=== PATIENT | male | born 1950 | race Caucasian/White ===

== ENCOUNTER → 2016-06-26 | Outpatient (CLI) | payer OTHER ==
[~2016-06-26] VITALS: Ht 167.6 cm; Wt 81.6 kg
[~2016-06-26] MED LIST: AMLODIPINE BESYL5 MG PO; BENZONATATE100 MG PO; INCRUSE ELLI62.5 MCG IH; LO-DOSE ASPIRIN81 M2 PO; METOPROLOL TAR100 MG PO; PROAIR HFA8.5 GM IH; SYMBICORT60 INHALAT IH
[2016-06-26 15:25] LABS: INTER. NORMALIZED RATIO 1.1; PROTHROMBIN TIME 11.5 (9.2-11.2); PTT 30.8 (25-32)
[2016-06-26 15:43] LABS: HEMATOCRIT 42.7 % (38.0-50.0); MCH 34.1 PG (29.0-34.0); MEAN PLAT.VOLUME 9.9 uM^3 (9.0-12.4); PLATELET COUNT 167 K/uL (156-360); RBC DIS.WIDTH-CV 12.6 % (11.8-14.6); RBC DIS.WIDTH-SD 42.3 % (39-53); RED BLOOD COUNT 4.64 M/uL (4.00-5.50); WHITE BLOOD COUNT 8.1 K/uL (4.1-10.2)
== END | disposition home or self-care (01) ==
LOC: AMB 14:17
PROVIDERS: Internal Medicine Pulmonary Disease
DX: R91.1 Solitary pulmonary nodule (principal); R59.0 Localized enlarged lymph nodes; J44.9 Chronic obstructive pulmonary disease, unspecified; G47.33 Obstructive sleep apnea (adult) (pediatric); F17.200 Nicotine dependence, unspecified, uncomplicated
CPT/HCPCS: 85027; 85610; 85730; 88173; 88305; J0461; J2175; J2250; J3010

== ENCOUNTER 2016-07-10 05:31 | Day surgery (SDC) | payer OTHER ==
[~2016-07-10] VITALS: Ht 167.6 cm; Wt 126.0 kg
[~2016-07-10 05:31] MED LIST changes: +PREDNISONE20 MG PO; +ZITHROMAX250 MG PO
[2016-07-10] MEDS ORDERED: CENTRUM SILVER1 EAC5 PO (05:56)
[2016-07-10 06:11] VITALS: BP 128/76
[2016-07-10 07:12] LABS: INTER. NORMALIZED RATIO 1.1; PROTHROMBIN TIME 11.4 (9.2-11.2)
[2016-07-10 07:38] LABS: CHLORIDE 98 mEq/L (99-109); POTASSIUM 4.1 mEq/L (3.7-5.4); SODIUM 134 mEq/L (136-147)
[2016-07-10 07:41] LABS: GLUCOSE 82 mg/dL (70-99)
[2016-07-10 07:42] LABS: ANION GAP 10 MEQ/L (2-14)
[2016-07-10 07:43] LABS: TOTAL BILIRUBIN 0.6 mg/dL (0.0-1.0)
[2016-07-10 07:44] LABS: ALKALINE PHOSPHATASE 40 IU/L (3-129)
[2016-07-10 07:45] LABS: GFR ESTIMATE (CALCULATED) > 59 mL/min/
[2016-07-10 07:46] LABS: UREA NITROGEN (BUN) 17 mg/dL (9-23)
[2016-07-10] MEDS ORDERED: NORCO 5/3251 TABLET PO (09:22)
[2016-07-10] MEDS ORDERED: COLACE100 MG PO (09:22)
[2016-07-10 09:45] VITALS: BP 122/71
[2016-07-10 10:21] VITALS: BP 128/71
== END 2016-07-10 10:35 | disposition home or self-care (01) ==
LOC: SDC 05:31
PROVIDERS: Thoracic Surgery (Cardiothoracic Vascular Surgery)
PROC: 0WJC4ZZ Inspection of Mediastinum, Percutaneous Endoscopic Approach (ICD-10-PCS; principal; 2016-07-10)
DX: C77.1 Secondary and unspecified malignant neoplasm of intrathoracic lymph nodes (principal); R91.1 Solitary pulmonary nodule; I10 Essential (primary) hypertension; I69.398 Other sequelae of cerebral infarction; R05 Cough
CPT/HCPCS: 80053; 85610; 86850; 86900; 86901; 88305; 88341 TC; 88342 TC; 93005; J0131; J0690; J1100; J2250; J2405; J3010; J7050

== ENCOUNTER 2016-08-29 14:16 | Observation (INO) | payer OTHER ==
[~2016-08-29] VITALS: Ht 165.1 cm; Wt 77.4 kg
[~2016-08-29 14:16] MED LIST changes: +CENTRUM SILVER1 EAC5 PO; +COLACE100 MG PO; +COMPAZINE10 MG PO; +NORCO 5/3251 TABLET PO; +SEN-O-TAB8.6 MG PO; +XANAX0.25 MG PO
[2016-08-29] MEDS ORDERED: PHENERGAN-CODE120 ML PO (14:43)
[2016-08-29] MEDS ORDERED: OXAYDO5 MG PO (14:44)
[2016-08-29] MEDS ORDERED: INDOCIN50 MG PO (15:14)
[2016-08-29] MEDS ORDERED: DUONEB 2.5-0.5 M3 ML AEROSOL (15:14)
[2016-08-29 15:51] LABS: IMMATURE GRANULOCYTE (%) 0.3 % (0.0-0.7); INSTRUMENT ABS NEUTROPHIL CT 1.6 K/uL; LYMPHOCYTE COUNT 1.2 K/uL (1.0-2.8); MCH 32.8 PG (29.0-34.0); MCHC 33.6 G/DL (30.0-36.0); MCV 97.6 FL (86-99); MEAN PLAT.VOLUME 9.2 uM^3 (9.0-12.4); MONOCYTE (%) 8.3 % (3-12); MONOCYTE COUNT 0.3 K/uL (0-0.8); NEUTROPHIL (%) 52.2 % (45-76); NEUTROPHIL COUNT 1.6 K/uL (1.8-6.4); RBC DIS.WIDTH-SD 53.6 % (39-53); RED BLOOD COUNT 2.87 M/uL (4.00-5.50)
[2016-08-29 15:57] LABS: PLATELET COUNT 100 K/uL (156-360); WHITE BLOOD COUNT 3.1 K/uL (4.1-10.2)
[2016-08-29 16:00] LABS: CHLORIDE 102 mEq/L (99-109); INTER. NORMALIZED RATIO 1.1; POTASSIUM 4.7 mEq/L (3.7-5.4); PTT 26.6 (25-32); SODIUM 136 mEq/L (136-147)
[2016-08-29 16:03] LABS: GLUCOSE 105 mg/dL (70-99)
[2016-08-29 16:04] LABS: ANION GAP 9 MEQ/L (2-14)
[2016-08-29 16:05] LABS: TOTAL BILIRUBIN 0.5 mg/dL (0.0-1.0)
[2016-08-29 16:06] LABS: ALKALINE PHOSPHATASE 72 IU/L (3-129); GFR ESTIMATE (CALCULATED) > 59 mL/min/
[2016-08-29 16:08] LABS: UREA NITROGEN (BUN) 8 mg/dL (9-23)
[2016-08-29 17:17] LABS: TROP-I INTERPRETATION NEGATIVE; TROPONIN-I < 0.01 ng/mL (0.0-0.30)
[2016-08-29 17:21] VITALS: BP 123/73
[2016-08-29 20:00] VITALS: BP 135/65
[2016-08-30] VITALS: BP 117/56; BP 119/70; BP 120/57; BP 133/77
[2016-08-30 01:16] LABS: TROP-I INTERPRETATION NEGATIVE; TROPONIN-I < 0.01 ng/mL (0.0-0.30)
[2016-08-30 04:00] VITALS: BP 132/60
[2016-08-30 07:39] LABS: HEMATOCRIT 26.6 % (38.0-50.0); MCH 32.2 PG (29.0-34.0); MCHC 33.1 G/DL (30.0-36.0); MCV 97.4 FL (86-99); MEAN PLAT.VOLUME 9.7 uM^3 (9.0-12.4); PLATELET COUNT 80 K/uL (156-360); RBC DIS.WIDTH-CV 14.9 % (11.8-14.6); RED BLOOD COUNT 2.73 M/uL (4.00-5.50); WHITE BLOOD COUNT 2.7 K/uL (4.1-10.2)
[2016-08-30 07:57] LABS: ANION GAP 7 MEQ/L (2-14); CHLORIDE 101 MEQ/L (99-109); GFR ESTIMATE (CALCULATED) > 59 mL/min/; GLUCOSE 79 mg/dL (70-99); POTASSIUM 4.4 MEQ/L (3.7-5.4); SAMPLE HEMOLYSIS CHECK 0; SAMPLE ICTERIC CHECK 0; SAMPLE LIPEMIA CHECK 0; SODIUM 137 MEQ/L (136-147); UREA NITROGEN (BUN) 9 mg/dL (9-23)
[2016-08-30 09:00] VITALS: BP 125/65
[2016-08-30] MEDS ORDERED: LOVENOX80 MG/0.8 SC (10:19)
[2016-08-30 11:27] VITALS: BP 128/60
[2016-08-30] MEDS ORDERED: FENTANYL1 EAC5 TD (15:06)
== END 2016-08-30 15:36 | disposition home or self-care (01) ==
LOC: EME 14:16 → EDOF 16:10 → 5WEST 16:53
PROVIDERS: Emergency Medicine; Internal Medicine
DX: I26.99 Other pulmonary embolism without acute cor pulmonale (principal); C34.92 Malignant neoplasm of unspecified part of left bronchus or lung; J96.10 Chronic respiratory failure, unspecified whether with hypoxia or hypercapnia; Z99.81 Dependence on supplemental oxygen; J44.9 Chronic obstructive pulmonary disease, unspecified; D61.818 Other pancytopenia
CPT/HCPCS: 80048; 80053; 81241 90; 84484; 85025; 85027; 85610; 85730; 93970; 94640 76; 94799; 99202; 99281; 99285; G0378; J1650

== ENCOUNTER 2016-09-05 10:26 | Day surgery (SDC) | payer OTHER ==
[~2016-09-05] VITALS: Ht 165.1 cm; Wt 78.0 kg
[~2016-09-05 10:26] MED LIST changes: +DUONEB 2.5-0.5 M3 ML AEROSOL; +ENOXAPARIN80 MG/0.8 SC; +FENTANYL1 EAC5 TD; +INDOCIN50 MG PO; +LOVENOX80 MG/0.8 SC; +METOPROLOL TART50 MG PO; +OXAYDO5 MG PO; +PHENERGAN-CODE120 ML PO; +VENTOLIN HFA18 GM IH
== END 2016-09-05 14:39 | disposition home or self-care (01) ==
LOC: CATH 10:26
DX: I87.8 Other specified disorders of veins (principal); C34.92 Malignant neoplasm of unspecified part of left bronchus or lung; Z87.891 Personal history of nicotine dependence; Z92.21 Personal history of antineoplastic chemotherapy; J44.9 Chronic obstructive pulmonary disease, unspecified; Z99.81 Dependence on supplemental oxygen; I10 Essential (primary) hypertension; Z86.73 Personal history of transient ischemic attack (TIA), and cerebral infarction without residual deficits; M19.90 Unspecified osteoarthritis, unspecified site; Z79.01 Long term (current) use of anticoagulants; Z82.3 Family history of stroke; Z82.49 Family history of ischemic heart disease and other diseases of the circulatory system
CPT/HCPCS: C1752; C1894; J0690; J1644; J2250; J3010; S0020